=== PATIENT | female | born 1960 | race Caucasian/White ===

== ENCOUNTER 2020-02-10 17:11 | Outpatient (CLI) | payer BC | END 2020-02-10 17:12 | disposition home or self-care (01) | LOC: COV 17:11 | PROVIDERS: ATTEND Family Medicine | DX: R05 Cough (principal) ==

== ENCOUNTER 2021-06-06 12:50 | Emergency (ER) | payer MEDICARE, BC ==
[2021-06-06 13:04] VITALS: BP 124/66
--- NOTE | 2021-06-06 13:51 | ED Physician Documentation ---
History of Present Illness - Stated complaint Stated Complaint: FOREIGN OBJECT IN EAR - Chief complaint Chief Complaint: General - Additonal information Additional information: 61-year-old female here with concerns of the cotton Q-tip swab is stuck in her left ear canal. Accidentally fell off this morning after a shower. She attempted to remove it by irrigating the ear as well as using suction at home without success. She now has some ear pain and loss of hearing in the left ear. Review of Systems Constitutional: reports: Reviewed and negative Eyes: reports: Reviewed and negative Ears: reports: Loss of hearing, Ear pain, Foreign body. denies: Drainage/discharge Nose: reports: Reviewed and negative Cardiac: reports: Reviewed and negative Respiratory: reports: Reviewed and negative PD PAST MEDICAL HISTORY - Past Medical History Past Medical History: Yes Psych: Anxiety, Bipolar disorder Musculoskeletal: Fibromyalgia - Past Surgical History Past Surgical History: Yes - Present Medications Home Medications: Ambulatory Orders Medication Instructions Recorded Confirmed Lamotrigine [Lamotrigine ER] 200 mg PO DAILY PM 01/29/16 06/06/21 Rabeprazole Sodium [Aciphex] 20 mg PO BID 01/29/16 06/06/21 DULoxetine [Cymbalta] 60 mg PO BID 07/07/16 06/06/21 oxyCODONE ER [OxyCONTIN] 10 mg PO DAILY 07/07/16 07/22/16 Ofloxacin [Ocuflox] 5 ml OP BID #1 bottle 06/06/21 - Allergies Allergies/Adverse Reactions: Allergies Allergy/AdvReac Type Severity Reaction Status Date / Time iodine Allergy Unknown Verified 06/06/21 13:01 ketamine Allergy Anaphylaxis Verified 06/06/21 13:01 latex Allergy Unknown Verified 06/06/21 13:01 meperidine HCl * Allergy Itching Verified 06/06/21 13:01 [From Demerol] pregabalin [From Lyrica] Allergy Unknown Verified 06/06/21 13:01 - Social History Does the pt smoke?: No Smoking Status: Never smoker Does the pt drink ETOH?: No Does the pt have substance abuse?: No - Immunizations Immunizations are current?: Yes PD ED PE EXPANDED - HEENT HEENT: No: Ears normal (Cotton Q-tip swab noted in distal left ear canal abutting the TM. Easily removed with alligator forceps. Upon removal ear canal itself is erythematous and inflamed. Tympanic membrane is intact without perforation or effusion.) Results - Vitals Vitals: Vital Signs - 24 hr 06/06/21 13:01 Temperature 36 C L Heart Rate 66 Respiratory 16 Rate Blood Pressure 124/66 O2 Saturation 96 Oxygen O2 Source Room air PD MEDICAL DECISION MAKING - ED course Complexity details: reviewed results, re-evaluated patient, d/w patient ED course: 5-year-old female presents emergency department for evaluation of foreign body in her left ear canal when a cotton swab fell off the tip of the Q-tip this morning. It was easily removed with alligator forceps. Unfortunately there is a fair amount of erythema and redness inflammation to the ear canal given the attempts to extract it at home. She will be started on ofloxacin eardrops twice daily for 3 to 5 days. Emergent return precautions discussed for worsening symptoms. Departure - Departure Disposition: 01 Home, Self Care Clinical Impression: Left ear pain, Foreign body Condition: Stable Record reviewed to determine appropriate education?: Yes Prescriptions: Ofloxacin [Ocuflox] 5 ml OP BID #1 bottle Comments: Hilda we were able to remove the cotton swab from your left ear. Unfortunately there is a lot of erythema and redness to the ear canal. Please fill the prescription for the antibiotic drops. Place 5 drops in the left ear twice daily for 3 to 5 days. If despite the antibiotic drops you are having increasing pain redness fevers milky drainage please return to the ER for a second look.
== END 2021-06-06 13:58 | disposition home or self-care (01) ==
LOC: ED 12:50
DX: T16.2XXA Foreign body in left ear, initial encounter (principal); X58.XXXA Exposure to other specified factors, initial encounter; H92.02 Otalgia, left ear
CPT/HCPCS: 99281; 99282